=== PATIENT | male | born 1980 | race Caucasian/White ===

== ENCOUNTER 2020-08-07 18:15 | Observation (INO) | payer SELFPAY ==
[2020-08-07] MEDS ORDERED: Sodium Chloride 0.9% 1,000 ML IV STA (19:21)
[2020-08-07] MEDS ORDERED: Sodium Chloride 0.9% 10 ML Syringe FLUSH PRN (19:21)
[2020-08-07] MEDS ORDERED: Sodium Chloride 0.9% 10 ML Syringe FLUSH ONE (19:24)
--- NOTE | 2020-08-07 19:24 | EDM.PDOC ---
ED HPI GENERAL MEDICAL PROBLEM - General Chief Complaint: Abdominal Pain Stated Complaint: R SIDE ABDOMINAL PAIN Time Seen by Provider: 08/07/20 19:18 Source of Information: Reports: Patient, Family, RN Notes Reviewed History Limitations: Reports: No Limitations - History of Present Illness INITIAL COMMENTS - FREE TEXT/NARRATIVE: 40-year-old gentleman presents emergency department a complaint of abdominal pain, he states the abdominal pain started today was mainly epigastric but then it migrated down to his right lower quadrant. No nausea vomiting he has no appetite no history of surgeries he is not passing gas Right Lower Abdomen Pain Score (Numeric/FACES): 8 - Related Data Allergies Allergy/AdvReac Type Severity Reaction Status Date / Time No Known Allergies Allergy Verified 08/07/20 19:05 Home Meds: Home Meds NK [No Known Home Meds] 08/07/20 [History] Past Medical History - Past Health History Medical/Surgical History: Denies Medical/Surgical History - Infectious Disease History Infectious Disease History: Reports: Chicken Pox Social & Family History - Tobacco Use Tobacco Use Status *Q: Never Tobacco User - Caffeine Use Caffeine Use: Reports: Coffee, Soda - Recreational Drug Use Recreational Drug Use: No ED ROS GENERAL - Review of Systems Review Of Systems: See Below Constitutional: Reports: No Symptoms Respiratory: Reports: No Symptoms Cardiovascular: Reports: No Symptoms GI/Abdominal: Reports: Abdominal Pain. Denies: Flatus, Nausea, Vomiting : Reports: No Symptoms ED EXAM, GI/ABD - Physical Exam Exam: See Below Exam Limited By: No Limitations General Appearance: Alert, WD/WN, No Apparent Distress Respiratory/Chest: No Respiratory Distress, Lungs Clear, Normal Breath Sounds, No Accessory Muscle Use, Chest Non-Tender Cardiovascular: Regular Rate, Rhythm, No Murmur GI/Abdominal Exam: Soft, Guarding, Rebound, Tender (Tender right lower quadrant), Other (Psoas sign negative obturator sign positive heeltap positive) Course - Vital Signs Last Recorded V/S: Last Vital Signs Temp 36.7 F L 08/07/20 19:05 Pulse 72 08/07/20 20:08 Resp 17 08/07/20 20:08 BP 124/73 08/07/20 20:08 Pulse Ox 98 08/07/20 20:08 - Orders/Labs/Meds Orders: Active Orders 24 hr Category Date Time Status Peripheral IV Care [RC] . DIRECTED Care 08/07/20 19:21 Active UA W/MICROSCOPIC [URIN] Urgent Lab 08/07/20 19:21 Ordered Iopamidol [Isovue-300 (61%)] Med 08/07/20 19:30 Active 100 ml IV . DIRECTED Sodium Chloride 0.9% [Normal Saline] 1,000 ml Med 08/07/20 19:21 Active IV .BOLUS Sodium Chloride 0.9% [Normal Saline] 100 ml Med 08/07/20 19:30 Active IV ASDIRECTED Sodium Chloride 0.9% [Saline Flush] Med 08/07/20 19:21 Active 10 ml FLUSH ASDIRECTED PRN Peripheral IV Insertion Adult [OM.PC] Urgent Oth 08/07/20 19:21 Ordered Medication Orders Sodium Chloride (Normal Saline) 1,000 mls @ 500 mls/hr IV .BOLUS STA Stop: 08/07/20 21:20 Last Admin: 08/07/20 19:42 Dose: 500 mls/hr Documented by: SAIMA Sodium Chloride (Normal Saline) 100 mls @ 3 mls/sec IV ASDIRECTED DELFINA Last Admin: 08/07/20 19:49 Dose: 3 mls/sec Documented by: CARLENE Iopamidol (Isovue-300 (61%)) 100 ml IV . DIRECTED [facility] Last Admin: 08/07/20 19:50 Dose: 100 ml Documented by: CARLENE Sodium Chloride (Saline Flush) 10 ml FLUSH ASDIRECTED PRN PRN Reason: Keep Vein Open Last Admin: 08/07/20 19:50 Dose: 10 ml Documented by: CARLENE Labs: Laboratory Tests 08/07/20 08/07/20 08/07/20 Range/Units 19:38 19:38 19:38 WBC 16.4 H (4.5-11.0) K/uL RBC 4.71 (4.30-5.90) M/uL Hgb 14.7 (12.0-15.0) g/dL Hct 42.7 (40.0-54.0) % MCV 91 (80-98) fL MCH 31 (27-31) pg MCHC 34 (32-36) % Plt Count 234 (150-400) K/uL Neut % (Auto) 86 H (36-66) % Lymph % (Auto) 7 L (24-44) % [place] % (Auto) 7 H (2-6) % Eos % (Auto) 0 L (2-4) % Baso % (Auto) 0 (0-1) % Sodium 132 L (140-148) mmol/L Potassium 4.1 (3.6-5.2) mmol/L Chloride 98 L (100-108) mmol/L Carbon Dioxide 25 (21-32) mmol/L Anion Gap 13.1 (5.0-14.0) mmol/L BUN 16 (7-18) mg/dL Creatinine 0.9 (0.8-1.3) mg/dL Est Cr Clr Drug Dosing 103.03 mL/min Estimated GFR (MDRD) > 60 (>60) Glucose 111 H (74-106) mg/dL Lactic Acid 1.8 (0.4-2.0) mmol/L Calcium 8.3 L (8.5-10.1) mg/dL Total Bilirubin 0.6 (0.2-1.0) mg/dL AST 12 L (15-37) U/L ALT 24 (12-78) U/L Alkaline Phosphatase 40 L (46-116) U/L Total Protein 6.3 L (6.4-8.2) g/dL Albumin 3.6 (3.4-5.0) g/dL Globulin 2.7 (2.3-3.5) g/dL Albumin/Globulin Ratio 1.3 (1.2-2.2) Lipase 79 (73-393) U/L Meds: Medications Generic Name Dose Route Start Last Admin Trade Name Patrickq PRN Reason Stop Dose Admin Sodium Chloride 1,000 mls @ 500 mls/hr 08/07/20 19:21 08/07/20 19:42 Normal Saline IV 08/07/20 21:20 500 mls/hr .BOLUS STA Administration Sodium Chloride 100 mls @ 3 mls/sec 08/07/20 19:30 08/07/20 19:49 Normal Saline IV 3 mls/sec ASDIRECTED DELFINA Administration Iopamidol 100 ml 08/07/20 19:30 08/07/20 19:50 Isovue-300 (61%) IV 100 ml . DIRECTED DELFINA Administration Sodium Chloride 10 ml 08/07/20 19:21 08/07/20 19:50 Saline Flush FLUSH 10 ml ASDIRECTED PRN Administration Keep Vein Open Discontinued Medications Generic Name Dose Route Start Last Admin Trade Name Freq PRN Reason Stop Dose Admin Sodium Chloride 10 ml 08/07/20 19:24 08/07/20 19:42 Saline Flush FLUSH 08/07/20 19:25 10 ml ONETIME ONE Administration Departure - Departure Time of Disposition: 20:45 Disposition: Admitted As Inpatient 67 Condition: Fair Clinical Impression: Dust Appendicitis Qualifiers: Appendicitis type: acute appendicitis Acute appendicitis type: with localized peritonitis Appendicitis gangrene presence: unspecified whether gangrene present Appendicitis perforation presence: without perforation Appendicitis abscess presence: without abscess Qualified Code(s): K35.30 - Acute appendicitis with localized peritonitis, without perforation or gangrene - Discharge Information Instructions: Appendicitis, Adult Referrals: PCP,None [Primary Care Provider] - Forms: ED Department Discharge Sepsis Event Note (ED) - Evaluation Sepsis Screening Result: No Definite Risk - Focused Exam Vital Signs: Vital Signs Temp Pulse Resp BP Pulse Ox 08/07/20 20:08 72 17 124/73 98 08/07/20 19:05 36.7 F L 71 16 118/76 99 08/07/20 19:00 36.7 F L 71 16 118/76 99 - My Orders Last 24 Hours: My Active Orders 08/07/20 19:21 Peripheral IV Care [RC] . DIRECTED UA W/MICROSCOPIC [URIN] Urgent Sodium Chloride 0.9% [Normal Saline] 1,000 ml IV .BOLUS Sodium Chloride 0.9% [Saline Flush] 10 ml FLUSH ASDIRECTED PRN Peripheral IV Insertion Adult [OM.PC] Urgent 08/07/20 19:30 Iopamidol [Isovue-300 (61%)] 100 ml IV . DIRECTED Sodium Chloride 0.9% [Normal Saline] 100 ml IV ASDIRECTED - Assessment/Plan Last 24 Hours: My Active Orders 08/07/20 19:21 Peripheral IV Care [RC] . DIRECTED UA W/MICROSCOPIC [URIN] Urgent Sodium Chloride 0.9% [Normal Saline] 1,000 ml IV .BOLUS Sodium Chloride 0.9% [Saline Flush] 10 ml FLUSH ASDIRECTED PRN Peripheral IV Insertion Adult [OM.PC] Urgent 08/07/20 19:30 Iopamidol [Isovue-300 (61%)] 100 ml IV . DIRECTED Sodium Chloride 0.9% [Normal Saline] 100 ml IV ASDIRECTED Plan: Assessment Acuity = acute Site and laterality = appendicitis Etiology = unknown Manifestations = abdominal pain Location of injury = Home Lab values = WBC elevated 16.4 consistent leukocytosis, sodium low at [address] scan describes acute appendicitis Plan Call discussed case Dr. Bell surgeon on-call at 2043 and agreed to come evaluate patient in the hospital for for admission This note was dictated using [employer] voice recognition software please call with any questions on syntax or grammar.
[2020-08-07] MEDS ORDERED: Iopamidol 612 MG/ML 100 ML Bottle IV SCH (19:30)
[2020-08-07] MEDS: Sodium Chloride 0.9% 100 ML IV SCH (19:49)
--- NOTE | 2020-08-07 20:26 | CRLCT ---
INDICATION: RLQ pain HISTORY: Right lower quadrant abdominal pain. COMPARISON: None. TECHNIQUE: CT of the abdomen and pelvis. Coronal/sagittal reconstruction images. 100 cc of Omnipaque 300 IV. FINDINGS: Lung bases: There is no pleural or pericardial effusion. The heart size is normal. There is no acute airspace disease. There is no basilar pneumothorax. Abdomen/pelvis: The liver morphology is non cirrhotic. There is no solid hepatic mass. There is no perihepatic ascites. The spleen size is normal. There is no adrenal mass. There is no hydronephrosis. There is no solid renal mass. There is no perinephric fluid collection. There is a tiny right renal cyst on image 40 of series 2. There is no pancreatic mass or pancreatic duct dilation. No glandular atrophy is seen. There is no free air. The prostate is within normal limits. There is no wall thickening in the colon. There are inflammatory changes present in the right lower quadrant. This is seen best on image 95 of series 2. The appendix is dilated, with periappendiceal fat stranding, and wall thickening of the appendix. The appendix measures up to 9 mm in dimension. These findings are consistent with acute appendicitis. There is no drainable fluid collection or pneumoperitoneum. Surgical consultation is advised. No pelvic sidewall lymphadenopathy is seen by size criteria. Circumaortic left renal vein. The celiac axis, SMA, and JOYCE are patent. The bone windows demonstrate no lytic or blastic bone lesions. There are degenerative changes at the endplates. IMPRESSION: 1. Acute appendicitis. 2. No drainable fluid collection or free intraperitoneal air. 3. Surgical consultation is advised for these findings. 4. Report called to . Officer, Emergency Department, 08/07/202022 hours. Dictated by Sam Shepard MD @ 08/07/2020 8:25:04 PM Please note that all CT scans at this facility use dose modulation, iterative reconstruction, and/or weight-based dosing when appropriate to reduce radiation dose to as low as reasonably achievable. Dictated by: Sam Shepard MD @ 08/07/2020 20:25:40 (Electronically Signed)
[2020-08-07] MEDS ORDERED: Ondansetron 4 MG/2 ML SDV IV PRN (20:47)
[2020-08-07] MEDS ORDERED: fentaNYL 100 MCG/2 ML SDV IVPUSH PRN (20:49)
[2020-08-07] MEDS ORDERED: Lactated Ringers 1,000 ML IV SCH (21:00)
[2020-08-07] MEDS: Ampicillin/Sulbactam Na 3 GM in Sodium Chloride 0.9% 100 ML IV SCH (23:11)
[2020-08-08] MEDS: Sodium Chloride 0.9% 100 ML IV SCH (03:51)
[2020-08-08] MEDS: Ampicillin/Sulbactam Na 3 GM in Sodium Chloride 0.9% 100 ML IV SCH ×4 (03:53→22:27)
[2020-08-08] MEDS ORDERED: Bupivacaine 0.5%/EPINEPHrine 1:200,000 50 ML MDV ONE (06:40)
[2020-08-08] MEDS ORDERED: fentaNYL 250 MCG/5 ML SDV ONE (07:03)
[2020-08-08] MEDS ORDERED: Propofol 200 MG/20 ML SDV ONE (07:04)
[2020-08-08] MEDS ORDERED: Neostigmine Methylsulfate 1 MG/ML 5 ML Syringe ONE (07:04)
[2020-08-08] MEDS ORDERED: Glycopyrrolate 0.2 MG/ML 5 ML MDV ONE (07:04)
[2020-08-08] MEDS ORDERED: Rocuronium 50 MG/5 ML Vial ONE (07:04)
[2020-08-08] MEDS ORDERED: Succinylcholine 200 MG/10 ML MDV ONE (07:04)
[2020-08-08] MEDS ORDERED: Ondansetron 4 MG/2 ML SDV ONE (07:04)
[2020-08-08] MEDS ORDERED: Dexamethasone 4 MG/ML SDV ONE (07:04)
[2020-08-08] MEDS ORDERED: Lactated Ringers 1,000 ML ONE (07:20)
[2020-08-08] MEDS ORDERED: Ropivacaine 46 ML, dexAMETHasone 8 MG, EPINEPHrine 0.4 MG, Sodium Chloride 0.9% 31.6 ML NERVRT SCH ×4 (07:30)
[2020-08-08] MEDS ORDERED: Ketamine 500 MG/5 ML MDV IV SCH (07:30)
[2020-08-08] MEDS ORDERED: Ketamine 50 MG in Sodium Chloride 0.9% 49.5 ML IV SCH (07:30)
[2020-08-08] MEDS ORDERED: Dextrose 5%-Lactated Ringers 1,000 ML IV SCH ×2 (09:30→15:15)
[2020-08-08] MEDS: oxyCODONE 5 MG Tab PO PRN ×3 (09:51→21:41)
[2020-08-08] MEDS: Acetaminophen 500 MG Tab PO SCH ×3 (09:51→21:41)
[2020-08-08] MEDS ORDERED: HYDROmorphone 0.5 MG/0.5 ML Syringe IVPUSH PRN (10:00)
[2020-08-08] MEDS ORDERED: HYDROmorphone 1 MG/ML Syringe IV PRN (10:00)
[2020-08-09] MEDS: oxyCODONE 5 MG Tab PO PRN ×3 (01:48→11:41)
[2020-08-09] MEDS: Ampicillin/Sulbactam Na 3 GM in Sodium Chloride 0.9% 100 ML IV SCH ×2 (04:02→09:55)
[2020-08-09] MEDS: Acetaminophen 500 MG Tab PO SCH ×2 (04:32→09:55)
[2020-08-09] MEDS ORDERED: Magnesium Hydroxide 400 MG/5 ML Susp 30 ML Cup PO PRN (11:32)
--- NOTE | 2020-08-09 12:41 | DISCH ---
ADMISSION DIAGNOSIS: Acute appendicitis. DISCHARGE DIAGNOSES: Diagnostic laparoscopy with: 1. Partial cecectomy including removal of overlying appendix. 2. Drainage of periappendiceal abscess. 3. Closure (stapled area of deserosalization of the distal small bowel). POSTOPERATIVE DIAGNOSES: 1. Perforated appendix with inflammation and necrotic extending into the cecum with pericecal abscess. 2. Adherent distal small bowel inflammatory mass requiring closure of area of deserosalization. Date of procedure: 08/08/2020. Surgeon: Orlando Bell MD. HISTORY: Tree Grant is a 40-year-old male who presented to the emergency room at [facility] with abdominal pain. After preoperative evaluation and discussion of possible risks and possible complications, he wished to proceed with surgical procedure. HOSPITAL COURSE: Tree had his surgery on 08/08/2020. He was treated with IV antibiotics of meropenem and Azactam. Vital signs remained stable. His pain was controlled. Oral intake was 3350. Urine output independent. DONALD drain put out 40 mL of a light pink drainage. Extremities without peripheral edema. DISPOSITION: Discharged to home. CONDITION: Stable and improving. FOLLOWUP APPOINTMENT: Danni Walker PA-C, at [facility] on 08/17/2020 at 10 a.m. NEW PRESCRIPTIONS: 1. Augmentin 875 mg 1 oral twice daily, #10. 2. Colace 100 mg oral b.i.d., #60. 3. Milk of magnesia 30 mL, take 1 daily. Two were sent home with the patient. 4. Oxycodone 5 mg q.4 hours p.r.n. pain, #42. DIET: Usual diet as tolerated. Drink 8 to 10 glasses of water a day. ACTIVITY: No lifting over 10 pounds for 2 weeks. Driving: Do not drive for 1 week and within 6 hours of taking narcotic pain medication. Shower/bathing: May shower. DISCHARGE INSTRUCTIONS: Notify provider if any fever, increased pain, swelling, redness, drainage, nausea, vomiting. Wound incision care: Keep site clean and dry. Wear abdominal binder for 2 weeks and then as tolerated. SPECIAL INSTRUCTION: Use incentive spirometer 10 times every hour while awake. /[id number]
--- NOTE | 2020-08-14 10:17 | OR ---
DATE OF PROCEDURE: 08/08/2020 SURGEON: Orlando Bell MD PREOPERATIVE DIAGNOSIS: Acute appendicitis. POSTOPERATIVE DIAGNOSES: 1. Perforated appendicitis with inflammation and necrosis extending onto the cecum with a pericecal abscess. 2. Adherent distal small bowel to inflammatory mass requiring closure of area of small bowel deserosalization. OPERATIVE PROCEDURES: Diagnostic laparoscopy with: 1. Partial cecectomy including removal of overlying appendix (37028). 2. Drainage of pericecal abscess (29173). 3. Staple closure of area of deserosalization of distal small bowel (16874). ANESTHESIA: General. CNC LATHE PROGRAMMER: Danni Walker PA-C INDICATIONS FOR PROCEDURE: This is a 40-year-old presenting overnight with a picture of acute appendicitis clinically and radiologically. The plan is to proceed with diagnostic laparoscopy with laparotomy if necessary and appendectomy. Potential risks of the procedure including bleeding, infection, leaks from GI tract closures, and possible need for more extensive procedures based on the operative findings were all reviewed, and the patient wishes to proceed. DETAILS OF PROCEDURE: The patient was taken to the operating room and placed in a supine position. After general endotracheal anesthesia was induced, a Lake catheter was inserted, and the abdomen prepped and draped. Three fingerbreadths superior and to the left of the xiphoid of the umbilicus, a transverse incision was made. The peritoneal cavity entered under direct vision with an Optiview trocar, inflated to 15 mmHg pressure with CO2. Laparoscope was then reinserted. No underlying trocar insertion site injuries were seen. Following this, 12 mm trocars were placed in the left lower quadrant and right upper quadrant, and bilateral transversus abdominis plane blocks were placed. The patient was noted to have an area of purulence in the area around the cecum. This extended up along the ascending colon to just below the liver. This abscess fluid was then evacuated. As one mobilized the appendix upward, it was noted that the distal small bowel was densely adherent to the inflammatory mass, and upon dissection, there was a segment of the distal small bowel just proximal to the ileocecal valve, which was deserosalized. This was closed with a JOSE ALFREDO hoffman load with a transverse orientation in terms of the closure to minimize luminal narrowing. As the appendix was mobilized upward, the mesoappendix was divided with a Harmonic scalpel, and the base of the appendix was noted to be necrotic with the necrosis extending somewhat onto the cecum. Given this, the cecum was divided allowing the cecal-appendiceal junction to provide a staple line across to clearly viable tissue. Once this was accomplished, the specimen was placed in a specimen bag and taken out through the left lower quadrant trocar site. The area of dissection was then inspected. Fibrin sealant was then used to reinforce the mesenteric closure and cecal staple line. A Polo-Pinto drain was taken out through the 5 mm trocars that had been placed at that point in the right flank and positioned across the cecectomy site and from there down toward the pelvis. The trocars were then sequentially removed. The fascia at each of the 12 mm sites was closed with 0 Vicryl stitch and the skin with 4-0 Vicryl skin stitch. Dressing was applied. The patient was taken to the recovery room in satisfactory condition. There were no other complications. Physician hr assistant, Danni Walker PA-C, played an essential role in assisting in this case, helping to position the patient, retract structures as needed, as well as suturing and cutting sutures when indicated. Her presence improved patient safety and decreased the operative time. Orlando Bell MD /[id number]
== END 2020-08-09 12:00 | disposition home or self-care (01) ==
LOC: JP.ED 18:15 → JP.MS 20:47
PROVIDERS: ADMIT Surgery; ATTEND Surgery
DX: K35.33 Acute appendicitis with perforation, localized peritonitis, and gangrene, with abscess (principal); Z79.899 Other long term (current) drug therapy; Z01.812 Encounter for preprocedural laboratory examination; Z20.822 Contact with and (suspected) exposure to COVID-19
CPT/HCPCS: 36415; 44204; 74177; 80053; 81001; 83605; 83690; 85025; 87070; 87075; 87077; 87186; 87205; 87635; 96360; 96361; 99284; 99285; A9270; J0171; J0295; J0330; J1100; J2405; J2704; J2710; J2795; J3010; J3490; J7030; J7120; J7121; Q9967; 88304; U0002